=== PATIENT | male | born 1995 | race Caucasian/White ===

== ENCOUNTER 2017-06-21 13:39 | Emergency (ER) | payer MEDICARE, MEDICAID ==
[~2017-06-21] VITALS: Ht 162.6 cm; Wt 75.0 kg
[~2017-06-21 13:39] MED LIST: /AUGM875TA OR; /CELE20CA OR; VICO5TAB OR
[2017-06-21] MEDS ORDERED: NS 1,000 ML IV ONE (16:00)
[2017-06-21] MEDS ORDERED: ISOVUE-370 76% 100ML VIAL (Q9967) As Ordered ONE (16:21)
--- NOTE | 2017-06-21 16:47 | REP ---
CT Head without contrast HISTORY: Trauma COMPARISON: 10/01/2015 There is no intraparenchymal hemorrhage, acute infarct, mass or midline shift. The ventricular system is normal in appearance. There is no extra cerebral collection. There is no fracture. The visualized sinuses are clear. IMPRESSION: There is no intracranial lesion. Signed by Darian Baird MD 06/21/2017 04:38 P
--- NOTE | 2017-06-21 16:52 | REP ---
CT of the chest with IV contrast: There are no comparison studies. There is no pneumothorax, hemothorax or pulmonary contusion. There are no clavicle, scapula, or rib fractures. There are no sternal or vertebral fractures. There is no mediastinal hematoma. The thoracic aorta is unremarkable. Cardiac size is normal. In the upper abdomen. Visualized areas of the liver, gallbladder, pancreas and spleen are unremarkable. The visualized abdominal aorta is unremarkable. The renal upper poles are unremarkable. Impression: Essentially negative CT study of the chest. Signed by Jones Lambert MD 06/21/2017 04:44 P
[2017-06-21 16:53] LABS: BASO % 0.3 % (0.0-1.0); EOS % 0.1 % (0.0-3.0); IMMATURE GRANULOCYTE % 0.3 % (0-0); LYMPH # 1.8 10^3/uL (1.5-6.5); LYMPH % 11.6 % (24.0-44.0); MEAN CORPUSCULAR HEMOGLOBIN 28.9 pg (27.0-33.0); MEAN CORPUSCULAR HGB CONC 34.5 g/dl (32.0-36.5); MEAN CORPUSCULAR VOLUME 83.7 fl (80.0-96.0); MONO # 0.4 10^3/uL (0.0-0.8); MONO % 2.6 % (0.0-5.0); NEUTROPHILS # 13.3 10^3/uL (1.8-7.7); NEUTROPHILS % 85.1 % (36.0-66.0); PLATELET COUNT, AUTOMATED 332 10^3/uL (150-450); RED CELL DISTRIBUTION WIDTH 12.3 % (11.5-14.5); WHITE BLOOD COUNT 15.7 10^3/uL (4.0-10.0)
--- NOTE | 2017-06-21 16:56 | REP ---
MAXILLOFACIAL CT WITHOUT CONTRAST: HISTORY: Trauma. Minimal mucosal thickening is present in the maxillary and right ethmoid sinuses. The remaining sinuses are clear. The ostiomeatal units are patent. The middle and inferior nasal turbinates are partially paradoxical. There is joan bullosa of the left middle nasal turbinate. There is mild deviation of the nasal septum to the right. A spur is present arising from the right side of the nasal septum. The spur abuts the right inferior nasal turbinate. The cribriform plate, medial méndez of the orbits and optic canals are intact. The carotid canals form a segment of the posterolateral méndez of the sphenoid sinus. There is no fracture. IMPRESSION: Sinus mucosal thickening as described above. Signed by Darian Baird MD 06/21/2017 05:00 P
--- NOTE | 2017-06-21 16:57 | REP ---
CT cervical spine without contrast HISTORY: Trauma COMPARISON: 10/01/2015 There is no acute fracture or subluxation. A disc bulge with associated osteophyte formation is present at the C4-5 level. A disc bulge is present at the C5-6 level. There is minimal narrowing of the spinal canal. The neural foramina are patent. The intervertebral discs and vertebral bodies are normal in height. IMPRESSION: 1. There is no acute fracture or subluxation. 2. There is cervical spondylosis at the C4-5 and C5-6 levels. Signed by Darian Baird MD 06/21/2017 04:48 P
[2017-06-21 17:15] LABS: INR 0.98
[2017-06-21] MEDS ORDERED: KETOROLAC 30 MG/ML VIAL (J1885) IV ONE (17:15)
[2017-06-21] MEDS ORDERED: CYCL10TA PO (17:20)
[2017-06-21] MEDS ORDERED: IBUP80TA PO (17:20)
[2017-06-21 17:26] LABS: ALBUMIN 3.9 GM/DL (3.2-5.2); ALBUMIN/GLOBULIN RATIO 1.05 (1.00-1.93); ALKALINE PHOSPHATASE 64 U/L (45-117); ALT/SGPT 50 U/L (12-78); ANION GAP 7 MEQ/L (8-16); AST/SGOT 38 U/L (15-37); BILIRUBIN,DIRECT 0.1 MG/DL (0.0-0.2); BILIRUBIN,TOTAL 0.6 MG/DL (0.2-1.0); BLOOD UREA NITROGEN 15 MG/DL (7-18); CARBON DIOXIDE LEVEL 27 MEQ/L (21-32); CHLORIDE LEVEL 103 MEQ/L (98-107); CREATININE FOR GFR 0.91 MG/DL (0.70-1.30); GLOMERULAR FILTRATION RATE > 60.0 (>60); GLUCOSE, FASTING 91 MG/DL (70-105); POTASSIUM SERUM 3.9 MEQ/L (3.5-5.1); SODIUM LEVEL 137 MEQ/L (136-145); TOTAL PROTEIN 7.6 GM/DL (6.4-8.2)
[2017-06-21 17:49] VITALS: BP 141/63
--- NOTE | 2017-06-22 07:40 | ECGEPIP ---
Stationary ECG Study [facility] - ED Test Date: 2017-06-21 Pat Name: ASIA PARK Department: Room: - Gender: M Personal Chef: ct : 1995 Requested By: AURELIA HILL PA-C. Order Number: [id number] Reading MD: Noelle Corrigan Measurements Intervals [place] Rate: 65 P: 1 MS: 163 QRS: 106 QRSD: 113 T: 30 QT: 381 QTc: 398 Interpretive Statements SINUS RHYTHM MARKED RIGHT AXIS DEVIATION MODERATE INTRAVENTRICULAR CONDUCTION DELAY NO PRIOR FOR COMPARISON Electronically Signed On 06-22-2017 7:40:36 EDT by Noelle Corrigan
== END 2017-06-21 18:06 | disposition home or self-care (01) ==
LOC: M ED 13:39
DX: S09.90XA Unspecified injury of head, initial encounter (principal); S20.20XA Contusion of thorax, unspecified, initial encounter; S13.4XXA Sprain of ligaments of cervical spine, initial encounter; S00.81XA Abrasion of other part of head, initial encounter; W22.8XXA Striking against or struck by other objects, initial encounter; Y92.099 Unspecified place in other non-institutional residence as the place of occurrence of the external cause; Y93.9 Activity, unspecified; Y99.9 Unspecified external cause status; Z87.891 Personal history of nicotine dependence; M47.812 Spondylosis without myelopathy or radiculopathy, cervical region
CPT/HCPCS: 70450; 70486; 71260; 72125; 80048; 80076; 82550; 82553; 84484; 85025; 85610; 85730; 86850; 86900; 86901; 93005; 96374; 99284; J1885; Q9967

== ENCOUNTER 2020-07-02 16:03 | Emergency (ER) | payer MEDICAID, MEDICARE, OTHER ==
[~2020-07-02] VITALS: Ht 162.6 cm; Wt 92.8 kg
[~2020-07-02 16:03] MED LIST changes: -/CELE20CA OR; +CELE1CAP4 OR; +CYCL-707 PO; +IBUP80TA PO
[2020-07-02] MEDS ORDERED: BOOSTRIX/ADACEL VACCINE (DIPHTH/PERTUSS/ACELL/TETANUS) 0.5ML SYR IM ONE (16:45)
[2020-07-02] MEDS ORDERED: LIDOCAINE 1% MDV 20ML VIAL SC ONE (16:45)
[2020-07-02 17:22] VITALS: BP 160/73
== END 2020-07-02 17:48 | disposition home or self-care (01) ==
LOC: M ED 16:03
DX: S61.212A Laceration without foreign body of right middle finger without damage to nail, initial encounter (principal); W25.XXXA Contact with sharp glass, initial encounter; Y92.9 Unspecified place or not applicable; Y99.0 Civilian activity done for income or pay

== ENCOUNTER → 2020-10-12 | Outpatient (REF) | payer MEDICAID ==
[2020-10-12 12:45] LABS: ALBUMIN 3.8 GM/DL (3.2-5.2); ALT/SGPT 50 U/L (12-78); BILIRUBIN,TOTAL 0.4 MG/DL (0.2-1.0); BLOOD UREA NITROGEN 24 MG/DL (7-18); CALCIUM LEVEL 9.3 MG/DL (8.5-10.1); CARBON DIOXIDE LEVEL 29 MEQ/L (21-32); CHLORIDE LEVEL 104 MEQ/L (98-107); CHOLESTEROL LEVEL 238 MG/DL (<200); CHOLESTEROL RISK RATIO 6.263 (<5); CREATININE FOR GFR 0.98 MG/DL (0.70-1.30); GLOMERULAR FILTRATION RATE > 60.0 (>60); GLUCOSE, FASTING 107 MG/DL (70-100); HDL CHOLESTEROL 38 MG/DL (>40); LDL CHOLESTEROL 169 MG/DL (<100); NON-HDL-C 200 MG/DL; POTASSIUM SERUM 4.4 MEQ/L (3.5-5.1); SODIUM LEVEL 140 MEQ/L (136-145); TOTAL PROTEIN 7.1 GM/DL (6.4-8.2); TRIGLYCERIDES LEVEL 156 MG/DL (<150)
[2020-10-12 13:47] LABS: HEMOGLOBIN A1c 5.5 %
== END ==
LOC: M SFHCCLAY 07:27
PROVIDERS: ATTEND Family Medicine
DX: Z00.00 Encounter for general adult medical examination without abnormal findings (principal); I11.9 Hypertensive heart disease without heart failure; R07.89 Other chest pain; Z13.220 Encounter for screening for lipoid disorders; Z82.49 Family history of ischemic heart disease and other diseases of the circulatory system; E66.01 Morbid (severe) obesity due to excess calories; Z68.35 Body mass index [BMI] 35.0-35.9, adult

== ENCOUNTER → 2020-11-22 | Outpatient (REF) | payer MEDICARE, MEDICAID | LOC: M LAB REF 11:14 | PROVIDERS: ATTEND Internal Medicine Cardiovascular Disease | DX: I10 Essential (primary) hypertension (principal) ==

== ENCOUNTER → 2020-11-23 | Outpatient (REF) | payer MEDICARE, MEDICAID ==
[2020-11-23 14:34] LABS: BLOOD UREA NITROGEN 16 MG/DL (7-18); CALCIUM LEVEL 9.5 MG/DL (8.5-10.1); CARBON DIOXIDE LEVEL 31 MEQ/L (21-32); CHLORIDE LEVEL 105 MEQ/L (98-107); CREATININE FOR GFR 0.95 MG/DL (0.70-1.30); GLOMERULAR FILTRATION RATE > 60.0 (>60); GLUCOSE, FASTING 97 MG/DL (70-100); POTASSIUM SERUM 4.3 MEQ/L (3.5-5.1); SODIUM LEVEL 139 MEQ/L (136-145); THYROXINE (T4) 9.2 UG/DL (4.5-12.0)
[2020-11-23 18:13] LABS: MALB URINE SIEMENS 6.8 MG/L; MAU/CREAT RATIO 3.3 MCG/MG (0.0-30.0)
== END ==
LOC: M LABDRAWC 11:16
PROVIDERS: ATTEND Internal Medicine Cardiovascular Disease
DX: I10 Essential (primary) hypertension (principal)

== ENCOUNTER → 2020-12-07 | Outpatient (CLI) | payer MEDICARE, MEDICAID ==
--- NOTE | 2020-12-08 14:29 | SLEEPHOME ---
DATE: 12/07/2020 ORDERED BY: Balaji Ferrer MD Diagnostic home sleep testing was performed due to concern for the obstructive sleep apnea syndrome in this patient with a history of snoring and fatigue. For testing, a nocturnal T3 respiratory monitoring device was used. Continuous record was made of pulse, oxygen saturation, air flow, chest and abdominal strain, and body position. Eight hours and 32 minutes of data were reviewed. There were 7 hours and 50 minutes marked as time in bed. During the interval marked time in bed, there were 111 respiratory events identified of 10 seconds in duration or greater for a respiratory event index of 14.2. The events were obstructive. Baseline pulse rate was 72. Pulse rate ranged 26 to 187. Baseline saturation was 94%. Saturations were seen as low as 61% and testing was performed in both the supine and nonsupine positions. IMPRESSION: Abnormal home sleep testing with repetitive respiratory events and oxygen desaturations to 61% with a respiratory event index of 14.2 is consistent with the obstructive sleep apnea syndrome. RECOMMENDATION: The patient should be encouraged to undergo a formal sleep evaluation.
== END ==
LOC: M SLEEP HO 08:25
PROVIDERS: ATTEND Internal Medicine Cardiovascular Disease
DX: G47.9 Sleep disorder, unspecified (principal); R06.83 Snoring
CPT/HCPCS: 76775; 93975; G0399

== ENCOUNTER → 2020-12-07 | Outpatient (CLI) | payer MEDICARE, MEDICAID ==
--- NOTE | 2020-12-07 09:29 | REP ---
INDICATION: HTN COMPARISON: None TECHNIQUE: Real time zheng scale ultrasound examination using curved array transducer followed by color Doppler evaluation of the renal vasculature. FINDINGS: Bilateral kidneys are normal in contour, size, echogenicity, and reniform shape without hydronephrosis, nephrolithiasis, cystic or renal mass lesion. Color Doppler evaluation . Peak aortic velocity: 162 centimeters/second RIGHT KIDNEY Renal arterial velocity: 119 centimeters/second Renal-aortic ratio: 0.7 Intrarenal resistive indices: 0.61-0.64 Intrarenal acceleration times: 0.03-0.04 LEFT KIDNEY Renal arterial velocity: 144 centimeters/second Renal-aortic ratio: 0.9 Intrarenal resistive indices: 0.57-0.65 Intrarenal acceleration times: 0.03-0.05 IMPRESSION: 1. Kidneys appear normal. 2. Doppler interegation without sonographic evidence for renal arterial stenosis. <Electronically signed by Jos Madrigal > 12/07/20 [id number]
== END ==
LOC: M RAD 08:22
PROVIDERS: ATTEND Internal Medicine Cardiovascular Disease
DX: I10 Essential (primary) hypertension (principal)

== ENCOUNTER 2021-10-27 16:51 | Inpatient (IN) | payer MEDICARE, MEDICAID ==
[~2021-10-27] VITALS: Ht 162.6 cm; Wt 76.0 kg
[~2021-10-27 16:51] MED LIST changes: -AMOX875T2 PO; -BACITAB PO; -DIAZ2TAB PO; -GABA-1171 PO; -METO25TA4 PO; -OXYC10TA12 PO
[2021-10-27] MEDS ORDERED: NS 500 ML IV ONE (17:50)
[2021-10-27 18:41] LABS: BASO # 0.1 10^3/uL (0.0-0.2); BASO % 0.4 % (0.0-1.0); EOS # 0.2 10^3/uL (0.0-0.5); EOS % 1.5 % (0.0-3.0); HEMATOCRIT 44.3 % (42.0-52.0); HEMOGLOBIN 13.6 g/dl (13.5-17.5); LYMPH # 3.7 10^3/uL (1.5-5.0); LYMPH % 22.4 % (24.0-44.0); MEAN CORPUSCULAR HEMOGLOBIN 26.3 pg (27.0-33.0); MEAN CORPUSCULAR HGB CONC 30.7 g/dl (32.0-36.5); MEAN CORPUSCULAR VOLUME 85.7 fl (80.0-96.0); MONO # 1.3 10^3/uL (0.0-0.8); MONO % 7.7 % (2.0-8.0); NEUTROPHILS % 67.3 % (36.0-66.0); PLATELET COUNT, AUTOMATED 546 10^3/uL (150-450); RED BLOOD COUNT 5.17 10^6/uL (4.30-6.10); WHITE BLOOD COUNT 16.3 10^3/uL (4.0-10.0)
[2021-10-27 19:01] LABS: ALBUMIN 3.6 GM/DL (3.2-5.2); ALT/SGPT 39 U/L (12-78); BILIRUBIN,DIRECT < 0.1 MG/DL (0.0-0.2); BILIRUBIN,TOTAL 0.3 MG/DL (0.2-1.0); BLOOD UREA NITROGEN 16 MG/DL (7-18); CALCIUM LEVEL 9.5 MG/DL (8.5-10.1); CARBON DIOXIDE LEVEL 28 MEQ/L (21-32); CHLORIDE LEVEL 105 MEQ/L (98-107); CREATININE FOR GFR 0.88 MG/DL (0.70-1.30); FREE T4 0.94 NG/DL (0.76-1.46); GLOMERULAR FILTRATION RATE > 60.0 (>60); GLUCOSE, FASTING 100 MG/DL (70-100); POTASSIUM SERUM 4.1 MEQ/L (3.5-5.1); SODIUM LEVEL 141 MEQ/L (136-145); TOTAL PROTEIN 8.3 GM/DL (6.4-8.2)
[2021-10-27] MEDS ORDERED: ISOVUE-370 76% 100ML VIAL As Ordered ONE (19:33)
[2021-10-27] MEDS ORDERED: PIPERACILLIN/TAZOBACTAM SOD 4.5 GM in D5W MINI-BAG PLUS 50 ML IV ONE (21:00)
[2021-10-27] MEDS ORDERED: GABA-1171 PO (22:00)
[2021-10-27] MEDS ORDERED: DIAZ2TAB PO (22:00)
[2021-10-27] MEDS ORDERED: METO25TA4 PO (22:00)
[2021-10-27] MEDS ORDERED: OXYC10TA12 PO (22:00)
[2021-10-27] MEDS ORDERED: VANCOMYCIN HCL 1,000 MG, VIAL MATE ADAPTER 1 EACH in NS 250 ML IV ONE (22:00)
[2021-10-27] MEDS ORDERED: HOME MED LIST COMPLETE! XX SCH (22:05)
[2021-10-27] MEDS ORDERED: oxyCODONE 5MG TAB PO ONE (23:25)
[2021-10-27] MEDS ORDERED: diazePAM 2 MG TAB PO ONE (23:25)
[2021-10-28] MEDS ORDERED: ALBUTEROL SULFATE 2.5 MG/0.5 ML INH NEB SOLN NEB PRN (00:35)
[2021-10-28] MEDS ORDERED: amLODIPine 5 MG TAB PO ONE (00:55)
[2021-10-28] MEDS ORDERED: CEPACOL LOZENGE PO PRN (01:10)
[2021-10-28] MEDS: VANCOMYCIN HCL 1,000 MG, VIAL MATE ADAPTER 1 EACH in NS 250 ML IV SCH ×3 (04:00→21:18)
[2021-10-28] MEDS: PIPERACILLIN/TAZOBACTAM SOD 4.5 GM in D5W MINI-BAG PLUS 50 ML IV SCH ×3 (05:00→21:18)
[2021-10-28] MEDS: oxyCODONE 5MG TAB PO PRN ×2 (05:00→21:20)
[2021-10-28] MEDS: IPRATROPIUM 0.5MG/ALBUTEROL 2.5MG INH SOL UD 3ML (DUONEB) NEB SCH ×4 (07:59→20:00)
[2021-10-28 08:53] LABS: BLOOD UREA NITROGEN 13 MG/DL (7-18); CALCIUM LEVEL 9.4 MG/DL (8.5-10.1); CARBON DIOXIDE LEVEL 27 MEQ/L (21-32); CHLORIDE LEVEL 106 MEQ/L (98-107); CREATININE FOR GFR 0.84 MG/DL (0.70-1.30); GLOMERULAR FILTRATION RATE > 60.0 (>60); GLUCOSE, FASTING 86 MG/DL (70-100); POTASSIUM SERUM 4.4 MEQ/L (3.5-5.1); SODIUM LEVEL 142 MEQ/L (136-145)
[2021-10-28 09:49] LABS: BASO % 0.2 % (0.0-1.0); EOS # 0.2 10^3/uL (0.0-0.5); EOS % 1.2 % (0.0-3.0); LYMPH # 2.6 10^3/uL (1.5-5.0); LYMPH % 19.4 % (24.0-44.0); MEAN CORPUSCULAR HEMOGLOBIN 26.2 pg (27.0-33.0); MEAN CORPUSCULAR HGB CONC 30.7 g/dl (32.0-36.5); MEAN CORPUSCULAR VOLUME 85.2 fl (80.0-96.0); MONO # 0.9 10^3/uL (0.0-0.8); MONO % 6.4 % (2.0-8.0); NEUTROPHILS # 9.7 10^3/uL (1.5-8.5); RED BLOOD COUNT 4.32 10^6/uL (4.30-6.10); WHITE BLOOD COUNT 13.5 10^3/uL (4.0-10.0)
[2021-10-28 09:52] LABS: HEMOGLOBIN 11.3 g/dl (13.5-17.5)
[2021-10-28 09:53] LABS: HEMATOCRIT 36.8 % (42.0-52.0); PLATELET COUNT, AUTOMATED 420 10^3/uL (150-450)
[2021-10-28] MEDS: ENOXAPARIN 40MG/0.4ML SYRINGE (J1650 PER 10MG) SC SCH (10:26)
[2021-10-28] MEDS: GABAPENTIN 100 MG CAP PO SCH ×3 (10:26→21:19)
[2021-10-28] MEDS: METOPROLOL TART 25 MG TABLET PO SCH ×2 (10:27→21:19)
[2021-10-28] MEDS: diazePAM 2 MG TAB PO SCH ×2 (10:27→21:18)
[2021-10-28] MEDS ORDERED: METOPROLOL TART 25 MG TABLET PO ONE (12:25)
[2021-10-28 17:05] LABS: C REACTIVE PROTEIN QUANTITATIV 4.76 MG/DL (0.00-0.30)
[2021-10-28 17:49] VITALS: BP 140/84
[2021-10-28 22:00] VITALS: BP 145/87
[2021-10-29] MEDS: PIPERACILLIN/TAZOBACTAM SOD 4.5 GM in D5W MINI-BAG PLUS 50 ML IV SCH ×2 (05:15→11:26)
[2021-10-29 06:00] VITALS: BP 116/69
[2021-10-29] MEDS: IPRATROPIUM 0.5MG/ALBUTEROL 2.5MG INH SOL UD 3ML (DUONEB) NEB SCH ×2 (08:00→12:00)
[2021-10-29] MEDS: ENOXAPARIN 40MG/0.4ML SYRINGE (J1650 PER 10MG) SC SCH (08:09)
[2021-10-29] MEDS: GABAPENTIN 100 MG CAP PO SCH (08:09)
[2021-10-29 08:10] VITALS: BP 144/88
[2021-10-29] MEDS: METOPROLOL TART 25 MG TABLET PO SCH (08:10)
[2021-10-29] MEDS: diazePAM 2 MG TAB PO SCH (08:10)
[2021-10-29 08:11] VITALS: BP 144/88
[2021-10-29] MEDS: oxyCODONE 5MG TAB PO PRN (08:11)
[2021-10-29] MEDS ORDERED: AMOX875T2 PO (10:53)
[2021-10-29] MEDS ORDERED: BACITAB PO (10:53)
[2021-10-29 10:55] LABS: BASO % 0.3 % (0.0-1.0); EOS # 0.3 10^3/uL (0.0-0.5); EOS % 2.8 % (0.0-3.0); HEMATOCRIT 34.6 % (42.0-52.0); HEMOGLOBIN 10.7 g/dl (13.5-17.5); LYMPH # 2.4 10^3/uL (1.5-5.0); LYMPH % 23.6 % (24.0-44.0); MEAN CORPUSCULAR HEMOGLOBIN 26.3 pg (27.0-33.0); MEAN CORPUSCULAR HGB CONC 30.9 g/dl (32.0-36.5); MONO # 0.7 10^3/uL (0.0-0.8); MONO % 6.5 % (2.0-8.0); NEUTROPHILS # 6.7 10^3/uL (1.5-8.5); NEUTROPHILS % 66.1 % (36.0-66.0); PLATELET COUNT, AUTOMATED 438 10^3/uL (150-450); RED BLOOD COUNT 4.07 10^6/uL (4.30-6.10); WHITE BLOOD COUNT 10.1 10^3/uL (4.0-10.0)
[2021-10-29 11:22] LABS: BLOOD UREA NITROGEN 12 MG/DL (7-18); CALCIUM LEVEL 9.2 MG/DL (8.5-10.1); CARBON DIOXIDE LEVEL 28 MEQ/L (21-32); CHLORIDE LEVEL 107 MEQ/L (98-107); CREATININE FOR GFR 0.92 MG/DL (0.70-1.30); GLOMERULAR FILTRATION RATE > 60.0 (>60); GLUCOSE, FASTING 93 MG/DL (70-100); POTASSIUM SERUM 3.8 MEQ/L (3.5-5.1); SODIUM LEVEL 142 MEQ/L (136-145)
[2021-10-29 11:35] LABS: RHEUMATOID FACTOR QUANT < 10.0 IU/ML (<15.0)
[2021-10-29 11:51] LABS: ERYTHROCYTE SEDIMENTATION RATE 39 mm/hr (0-15)
== END 2021-10-29 13:31 | disposition home or self-care (01) | DRG 194 ==
LOC: M ED 16:51 → M ED INP 10-28 00:32 → ENRESERV 10-28 15:36 → M MSPAV 10-28 16:36
PROVIDERS: ADMIT Internal Medicine; ATTEND General Practice
DX: J18.9 Pneumonia, unspecified organism (principal); G72.81 Critical illness myopathy; J02.9 Acute pharyngitis, unspecified; F41.9 Anxiety disorder, unspecified; Z79.899 Other long term (current) drug therapy

== ENCOUNTER → 2021-10-27 | Outpatient (CLI) | payer MEDICARE, MEDICAID ==
[~2021-10-27] MED LIST changes: +AMOX875T2 PO; +BACITAB PO; +DIAZ2TAB PO; +GABA-1171 PO; +METO25TA4 PO; +OXYC10TA12 PO
== END ==
LOC: M CLY 15:11
PROVIDERS: ATTEND Family Medicine
DX: J90 Pleural effusion, not elsewhere classified (principal); R91.8 Other nonspecific abnormal finding of lung field; R05.9 Cough, unspecified; R50.9 Fever, unspecified

== ENCOUNTER 2021-12-06 13:45 | Outpatient (RCR) | payer MEDICARE, MEDICAID ==
[~2021-12-06 13:45] MED LIST changes: +AMOX875T2 PO; +BACITAB PO; +DIAZ2TAB PO; +GABA-1171 PO; +METO25TA4 PO; +OXYC10TA12 PO
== END 2021-12-08 ==
LOC: M PT 13:45
PROVIDERS: ATTEND Family Medicine
DX: R53.1 Weakness (principal); U09.9 Post COVID-19 condition, unspecified; R47.9 Unspecified speech disturbances

== ENCOUNTER 2022-01-06 14:30 | Outpatient (RCR) | payer MEDICARE, MEDICAID | END 2022-01-07 | LOC: M PT 14:30 | PROVIDERS: ATTEND Family Medicine | DX: U09.9 Post COVID-19 condition, unspecified (principal); R47.9 Unspecified speech disturbances; R53.1 Weakness ==

== ENCOUNTER → 2022-01-22 | Outpatient (REF) | payer MEDICARE, MEDICAID | LOC: M LAB REF 15:01 | PROVIDERS: ATTEND Physician Assistant Medical | DX: J06.9 Acute upper respiratory infection, unspecified (principal) ==

== ENCOUNTER 2022-02-03 13:45 | Outpatient (RCR) | payer MEDICARE, MEDICAID | END 2022-02-07 | LOC: M PT 13:45 | PROVIDERS: ATTEND Family Medicine | DX: U09.9 Post COVID-19 condition, unspecified (principal); R47.9 Unspecified speech disturbances; R53.1 Weakness ==

== ENCOUNTER 2022-03-08 13:02 | Outpatient (RCR) | payer MEDICARE, MEDICAID | END 2022-03-09 | LOC: M PT 13:02 | PROVIDERS: ATTEND Family Medicine | DX: U09.9 Post COVID-19 condition, unspecified (principal); R47.9 Unspecified speech disturbances; R53.1 Weakness ==

== ENCOUNTER 2022-03-17 13:45 | Outpatient (RCR) | payer MEDICARE, MEDICAID | END 2022-04-09 | LOC: M PT 13:45 | PROVIDERS: ATTEND Family Medicine | DX: U09.9 Post COVID-19 condition, unspecified (principal); R47.9 Unspecified speech disturbances; R53.1 Weakness ==

== ENCOUNTER → 2022-06-07 | Outpatient (REF) | payer MEDICARE, MEDICAID ==
[2022-06-07 17:26] LABS: HEMATOCRIT 44.9 % (42.0-52.0); HEMOGLOBIN 14.6 g/dl (13.5-17.5); MEAN CORPUSCULAR HEMOGLOBIN 27.9 pg (27.0-33.0); MEAN CORPUSCULAR HGB CONC 32.5 g/dl (32.0-36.5); MEAN CORPUSCULAR VOLUME 85.7 fl (80.0-96.0); PLATELET COUNT, AUTOMATED 321 10^3/uL (150-450); RED BLOOD COUNT 5.24 10^6/uL (4.30-6.10)
[2022-06-07 18:03] LABS: ALBUMIN 3.9 GM/DL (3.2-5.2); ALT/SGPT 42 U/L (12-78); BILIRUBIN,TOTAL 0.6 MG/DL (0.2-1.0); BLOOD UREA NITROGEN 23 MG/DL (7-18); CALCIUM LEVEL 9.9 MG/DL (8.5-10.1); CARBON DIOXIDE LEVEL 30 MEQ/L (21-32); CHLORIDE LEVEL 103 MEQ/L (98-107); CHOLESTEROL LEVEL 211 MG/DL (<200); CHOLESTEROL RISK RATIO 5.552 (<5); CREATININE FOR GFR 1.29 MG/DL (0.70-1.30); GLOMERULAR FILTRATION RATE > 60.0 (>60); GLUCOSE, FASTING 87 MG/DL (70-100); HDL CHOLESTEROL 38 MG/DL (>40); LDL CHOLESTEROL 128 MG/DL (<100); NON-HDL-C 173 MG/DL; SODIUM LEVEL 136 MEQ/L (136-145); TOTAL PROTEIN 7.7 GM/DL (6.4-8.2); TRIGLYCERIDES LEVEL 224 MG/DL (<150)
[2022-06-07 18:09] LABS: HEMOGLOBIN A1c 5.9 %
== END ==
LOC: M SFHCCLAY 10:53
PROVIDERS: ATTEND Nurse Practitioner Family
DX: Z13.1 Encounter for screening for diabetes mellitus (principal); Z13.220 Encounter for screening for lipoid disorders; U09.9 Post COVID-19 condition, unspecified

== ENCOUNTER → 2022-08-01 | Outpatient (CLI) | payer MEDICARE, MEDICAID | LOC: M PLAIMG 10:13 | PROVIDERS: ATTEND Internal Medicine Pulmonary Disease | DX: J84.9 Interstitial pulmonary disease, unspecified (principal); U09.9 Post COVID-19 condition, unspecified; R16.0 Hepatomegaly, not elsewhere classified; J47.9 Bronchiectasis, uncomplicated ==

== ENCOUNTER → 2022-08-11 | Outpatient (REF) | payer MEDICARE, MEDICAID ==
[2022-08-11 17:40] LABS: PLATELET COUNT, AUTOMATED 355 10^3/uL (150-450)
[2022-08-11 17:50] LABS: INR 0.96
[2022-08-11 17:51] LABS: PARTIAL THROMBOPLASTIN TIME 32.8 SECONDS (24.8-34.2)
[2022-08-15 15:09] LABS: ACETYLCHOLINE RCPTOR BINDING A 0.03 nmol/L (0.00-0.24); HCG SERUM TUMOR MARKER QUANT < 1 mIU/mL (0-3)
== END ==
LOC: M LABDRAWC 17:13
PROVIDERS: ATTEND Internal Medicine Pulmonary Disease
DX: R91.8 Other nonspecific abnormal finding of lung field (principal); J98.59 Other diseases of mediastinum, not elsewhere classified

== ENCOUNTER → 2022-08-24 | Outpatient (CLI) | payer MEDICARE, MEDICAID ==
[~2022-08-24] MED LIST changes: +ESCI5SOL3 PO; +LIDOCAINE 1% MDV 20ML VIAL As Ordered ONE
[2022-08-24 08:02] VITALS: BP 166/103
== END ==
LOC: M IRPRO 07:57
PROVIDERS: ATTEND Internal Medicine Pulmonary Disease
DX: R91.8 Other nonspecific abnormal finding of lung field (principal); Z53.9 Procedure and treatment not carried out, unspecified reason

== ENCOUNTER → 2022-10-02 | Outpatient (CLI) | payer MEDICARE, MEDICAID ==
[~2022-10-02] MED LIST changes: +ALB2.5NEB NEB; +ALBU8.5H; +ALBU8.5H INH; +AMOX875T2; +BENZ-18 PO; +IBUP1TAB7 PO; +IBUP80TA; +LEXA1TAB2 PO; -LIDOCAINE 1% MDV 20ML VIAL As Ordered ONE; +OMEP-173 PO; +PRED10TA2 PO; +SYMB16INH INH
== END ==
LOC: M CLY 15:13
PROVIDERS: ATTEND Physician Assistant
DX: R05.1 Acute cough (principal); R91.8 Other nonspecific abnormal finding of lung field

== ENCOUNTER 2022-10-03 23:09 | Inpatient (IN) | payer MEDICARE, MEDICAID ==
[~2022-10-03] VITALS: Ht 162.6 cm; Wt 97.7 kg
[~2022-10-03 23:09] MED LIST changes: -ALB2.5NEB NEB; -ALBU8.5H; -ALBU8.5H INH; -AMOX875T2; -BENZ-18 PO; -IBUP1TAB7 PO; -IBUP80TA; -LEXA1TAB2 PO; -OMEP-173 PO; -PRED10TA2 PO; -SYMB16INH INH
[2022-10-03] MEDS ORDERED: ACETAMINOPHEN TAB 650MG DOSE (2X325MG) PO ONE (23:50)
[2022-10-04 00:35] LABS: MAGNESIUM LEVEL 1.9 MG/DL (1.8-2.4)
[2022-10-04 00:39] LABS: BASO # 0.1 10^3/uL (0.0-0.2); BASO % 0.5 % (0.0-1.0); EOS # 0.2 10^3/uL (0.0-0.5); EOS % 1.7 % (0.0-3.0); HEMATOCRIT 43.6 % (42.0-52.0); HEMOGLOBIN 14.3 g/dl (13.5-17.5); LYMPH # 2.6 10^3/uL (1.5-5.0); LYMPH % 19.5 % (24.0-44.0); MEAN CORPUSCULAR HEMOGLOBIN 28.9 pg (27.0-33.0); MEAN CORPUSCULAR HGB CONC 32.8 g/dl (32.0-36.5); MEAN CORPUSCULAR VOLUME 88.1 fl (80.0-96.0); MONO # 1.2 10^3/uL (0.0-0.8); MONO % 8.9 % (2.0-8.0); NEUTROPHILS # 9.1 10^3/uL (1.5-8.5); NEUTROPHILS % 68.1 % (36.0-66.0); PLATELET COUNT, AUTOMATED 370 10^3/uL (150-450); RED BLOOD COUNT 4.95 10^6/uL (4.30-6.10); WHITE BLOOD COUNT 13.4 10^3/uL (4.0-10.0)
[2022-10-04 00:41] LABS: BLOOD UREA NITROGEN 24 MG/DL (9-23); CARBON DIOXIDE LEVEL 24 MMOL/L (20-31); CHLORIDE LEVEL 104 MMOL/L (98-107); GLOMERULAR FILTRATION RATE > 60.0 (>60); GLUCOSE, FASTING 142 MG/DL (60-100); POTASSIUM SERUM 5.4 MMOL/L (3.5-5.1); SODIUM LEVEL 138 MMOL/L (136-145)
[2022-10-04] MEDS ORDERED: NS IV ONE (00:45)
[2022-10-04] MEDS ORDERED: ALBU8.5H (01:20)
[2022-10-04] MEDS ORDERED: AMOX875T2 (01:20)
[2022-10-04] MEDS ORDERED: IBUP80TA (01:20)
[2022-10-04] MEDS ORDERED: IPRATROPIUM 0.5MG/ALBUTEROL 2.5MG INH SOL UD 3ML (DUONEB) NEB ONE (01:30)
[2022-10-04] MEDS ORDERED: cefTRIAXone SOD 1 GM in D5W MINI-BAG PLUS 50 ML IV ONE (01:30)
[2022-10-04 01:48] LABS: RSV AMPLIFICATION POSITIVE (NEGATIVE)
[2022-10-04] MEDS ORDERED: AZITHROMYCIN INJ 500 MG, VIAL MATE ADAPTER 1 EACH in NS 250 ML IV ONE (02:00)
[2022-10-04] MEDS ORDERED: LEXA1TAB2 PO (02:32)
[2022-10-04] MEDS ORDERED: ALBU8.5H INH (02:32)
[2022-10-04] MEDS ORDERED: IBUP1TAB7 PO (02:32)
[2022-10-04] MEDS ORDERED: AMOX875T2 PO (02:32)
[2022-10-04] MEDS ORDERED: HOME MED LIST COMPLETE! XX SCH (02:35)
[2022-10-04] MEDS ORDERED: ALBUTEROL 90 MCG/ACT 8GM HFA INHALER INH PRN (02:50)
[2022-10-04 03:01] LABS: CK-MB VALUE MASS 3.2 NG/ML (<3.6)
[2022-10-04 03:02] LABS: MB/CK RELATIVE INDEX 0.74 (< OR =4)
[2022-10-04] MEDS ORDERED: GLUCAGON INJ 1MG VIAL SC PRN (03:45)
[2022-10-04] MEDS ORDERED: DEXTROSE 50% 50ML SYRINGE IV PRN (03:45)
[2022-10-04] MEDS ORDERED: GLUCOSE 4GM CHEW TABLET PO PRN (03:45)
[2022-10-04] MEDS ORDERED: SODIUM CHLORIDE 0.9% 1000ML IV ONE (04:00)
[2022-10-04] MEDS: BENZONATATE 100MG CAPSULE PO PRN ×2 (05:01→17:50)
[2022-10-04] MEDS: predniSONE 20 MG TAB PO SCH ×2 (05:04→08:26)
[2022-10-04] MEDS: HEPARIN SOD (PORCINE) 5000UNITS/ML 1ML VIAL/SYRINGE SC SCH ×3 (05:27→21:41)
[2022-10-04] MEDS: NS 1,000 ML IV SCH ×3 (05:30→16:47)
[2022-10-04] MEDS: ALBUTEROL SULFATE 2.5MG/0.5ML INH NEB SOLN NEB PRN ×4 (05:49→18:09)
[2022-10-04 05:56] VITALS: O2SAT 96
[2022-10-04] MEDS ORDERED: DOXYCYCLINE HYCLATE 100 MG in D5W MINI-BAG PLUS 100 ML IV SCH (06:00)
[2022-10-04] MEDS ORDERED: ACETAMINOPHEN TAB 650MG DOSE (2X325MG) PO ONE (06:00)
[2022-10-04] MEDS: INSULIN LISPRO (NovoLOG) PER UNIT SC SCH ×3 (07:30→17:43)
[2022-10-04] MEDS: GABAPENTIN 100 MG CAP PO SCH ×3 (08:25→21:42)
[2022-10-04] MEDS: ESCITALOPRAM OXALATE 10 MG TAB (LEXAPRO) PO SCH (08:26)
[2022-10-04] MEDS: METOPROLOL TART 25 MG TABLET PO SCH ×2 (08:30→21:42)
[2022-10-04 13:35] VITALS: BP 136/90
[2022-10-04] MEDS: ACETAMINOPHEN TAB 650MG DOSE (2X325MG) PO PRN ×2 (17:49→22:02)
[2022-10-04] MEDS ORDERED: ALBUTEROL 90 MCG/ACT 8GM HFA INHALER INH SCH (20:00)
[2022-10-04] MEDS: SYMBICORT 160/4.5MCG INHALER 6GM INH SCH (20:00)
[2022-10-04 20:48] VITALS: BP 136/79
[2022-10-04] MEDS ORDERED: INSULIN LISPRO (NovoLOG) PER UNIT SC SCH (21:00)
[2022-10-04] MEDS: DOXYCYCLINE HYCLATE 100MG TABLET PO SCH (21:42)
[2022-10-05] MEDS: ALBUTEROL SULFATE 2.5MG/0.5ML INH NEB SOLN NEB PRN ×4 (00:38→11:21)
[2022-10-05] MEDS ORDERED: cefTRIAXone SOD 1 GM in D5W MINI-BAG PLUS 50 ML IV SCH (02:00)
[2022-10-05] MEDS: BENZONATATE 100MG CAPSULE PO PRN (03:44)
[2022-10-05] MEDS: ACETAMINOPHEN TAB 650MG DOSE (2X325MG) PO PRN ×2 (03:46→10:24)
[2022-10-05] MEDS: ALBUTEROL 90 MCG/ACT 8GM HFA INHALER INH SCH ×3 (04:00→07:46)
[2022-10-05] MEDS: HEPARIN SOD (PORCINE) 5000UNITS/ML 1ML VIAL/SYRINGE SC SCH (05:54)
[2022-10-05 06:00] VITALS: BP 115/65
[2022-10-05 06:39] LABS: HEMATOCRIT 33.2 % (42.0-52.0); MEAN CORPUSCULAR HEMOGLOBIN 28.8 pg (27.0-33.0); MEAN CORPUSCULAR HGB CONC 32.5 g/dl (32.0-36.5); MEAN CORPUSCULAR VOLUME 88.5 fl (80.0-96.0); PLATELET COUNT, AUTOMATED 290 10^3/uL (150-450); RED BLOOD COUNT 3.75 10^6/uL (4.30-6.10); WHITE BLOOD COUNT 12.2 10^3/uL (4.0-10.0)
[2022-10-05 06:47] LABS: HEMOGLOBIN 10.8 g/dl (13.5-17.5)
[2022-10-05 07:03] LABS: BLOOD UREA NITROGEN 22 MG/DL (9-23); CARBON DIOXIDE LEVEL 25 MMOL/L (20-31); CHLORIDE LEVEL 109 MMOL/L (98-107); CREATININE FOR GFR 0.88 MG/DL (0.70-1.30); GLOMERULAR FILTRATION RATE > 60.0 (>60); GLUCOSE, FASTING 96 MG/DL (60-100); POTASSIUM SERUM 3.8 MMOL/L (3.5-5.1); SODIUM LEVEL 141 MMOL/L (136-145)
[2022-10-05] MEDS: INSULIN LISPRO (NovoLOG) PER UNIT SC SCH ×2 (07:30→11:54)
[2022-10-05] MEDS: SYMBICORT 160/4.5MCG INHALER 6GM INH SCH (07:46)
[2022-10-05 08:00] VITALS: BP 158/88
[2022-10-05] MEDS ORDERED: OMEPRAZOLE 20MG CAP PO SCH (09:00)
[2022-10-05] MEDS: ESCITALOPRAM OXALATE 10 MG TAB (LEXAPRO) PO SCH (10:19)
[2022-10-05 10:21] VITALS: BP 158/88
[2022-10-05] MEDS: METOPROLOL TART 25 MG TABLET PO SCH (10:21)
[2022-10-05] MEDS: DOXYCYCLINE HYCLATE 100MG TABLET PO SCH (10:21)
[2022-10-05] MEDS: GABAPENTIN 100 MG CAP PO SCH (10:22)
[2022-10-05] MEDS: predniSONE 20 MG TAB PO SCH (10:23)
[2022-10-05] MEDS ORDERED: PRED10TA2 PO (12:12)
[2022-10-05] MEDS ORDERED: ALB2.5NEB NEB (12:12)
[2022-10-05] MEDS ORDERED: BENZ-18 PO (12:12)
[2022-10-05] MEDS ORDERED: OMEP-173 PO (12:12)
[2022-10-05] MEDS ORDERED: SYMB16INH INH (12:12)
[2022-10-05] MEDS ORDERED: ALBUTEROL SULFATE 2.5MG/0.5ML INH NEB SOLN NEB SCH (16:00)
== END 2022-10-05 14:02 | disposition home or self-care (01) | DRG 202 ==
LOC: M ED 23:09 → M ED INP 10-04 04:06 → ENRESERV 10-04 12:56 → M MSPAV 10-04 13:35
PROVIDERS: ADMIT Family Medicine; ATTEND Internal Medicine Nephrology
DX: J21.0 Acute bronchiolitis due to respiratory syncytial virus (principal); J96.21 Acute and chronic respiratory failure with hypoxia; E87.20 Acidosis, unspecified; F41.9 Anxiety disorder, unspecified; I10 Essential (primary) hypertension; U09.9 Post COVID-19 condition, unspecified; J84.10 Pulmonary fibrosis, unspecified; Z20.822 Contact with and (suspected) exposure to COVID-19; R00.0 Tachycardia, unspecified; Z99.81 Dependence on supplemental oxygen; E66.9 Obesity, unspecified; G47.33 Obstructive sleep apnea (adult) (pediatric); Z79.899 Other long term (current) drug therapy

== ENCOUNTER → 2022-10-23 | Outpatient (CLI) | payer MEDICARE, MEDICAID ==
[~2022-10-23] MED LIST changes: +ALB2.5NEB NEB; +ALBU8.5H; +ALBU8.5H INH; +AMOX875T2; +BENZ-18 PO; +IBUP1TAB7 PO; +IBUP80TA; +ISOVUE-370 76% 100ML VIAL As Ordered ONE; +LEXA1TAB2 PO; +OMEP-173 PO; +PRED10TA2 PO; +SYMB16INH INH
== END ==
LOC: M RAD 07:52
PROVIDERS: ATTEND Nurse Practitioner Family
DX: J98.59 Other diseases of mediastinum, not elsewhere classified (principal)
CPT/HCPCS: 71260; Q9967

== ENCOUNTER → 2023-01-10 | Outpatient (REF) | payer MEDICARE, MEDICAID ==
[~2023-01-10] MED LIST changes: -ISOVUE-370 76% 100ML VIAL As Ordered ONE
[2023-01-10 18:13] LABS: HEMOGLOBIN A1c 5.6 % (4.0-6.0)
[2023-01-10 18:35] LABS: ALBUMIN 3.8 G/DL (3.2-5.2); ALKALINE PHOSPHATASE 69 U/L (46-116); ALT/SGPT 29 U/L (7.0-40); AST/SGOT 33 U/L (<34); BILIRUBIN,TOTAL 0.5 MG/DL (0.3-1.2); BLOOD UREA NITROGEN 30 MG/DL (9-23); CALCIUM LEVEL 8.8 MG/DL (8.5-10.1); CARBON DIOXIDE LEVEL 28 MMOL/L (20-31); CHLORIDE LEVEL 105 MMOL/L (98-107); CHOLESTEROL LEVEL 215 MG/DL (<200); CHOLESTEROL RISK RATIO 7.31 (<5); CREATININE FOR GFR 1.28 MG/DL (0.70-1.30); GLOMERULAR FILTRATION RATE > 60.0 (>60); GLUCOSE, FASTING 104 MG/DL (60-100); HDL CHOLESTEROL 29.4 MG/DL (>40); NON-HDL-C 185.6 MG/DL; POTASSIUM SERUM 4.8 MMOL/L (3.5-5.1); SODIUM LEVEL 139 MMOL/L (136-145); TOTAL PROTEIN 6.6 G/DL (5.7-8.2); TRIGLYCERIDES LEVEL 238 MG/DL (<150)
== END ==
LOC: M SFHCCLAY 11:29
PROVIDERS: ATTEND Nurse Practitioner Family
DX: R73.03 Prediabetes (principal); E78.5 Hyperlipidemia, unspecified

== ENCOUNTER → 2023-02-14 | Outpatient (CLI) | payer MEDICARE, MEDICAID | LOC: M CLY 14:37 | PROVIDERS: ATTEND Nurse Practitioner Family | DX: R06.02 Shortness of breath (principal) ==

== ENCOUNTER → 2023-02-14 | Outpatient (REF) | payer MEDICARE, MEDICAID | LOC: M SFHCCLAY 14:27 | PROVIDERS: ATTEND Nurse Practitioner Family | DX: J06.9 Acute upper respiratory infection, unspecified (principal) ==

== ENCOUNTER → 2023-07-09 | Outpatient (REF) | payer MEDICARE, MEDICAID | LOC: M SFHCCLAY 14:38 | PROVIDERS: ATTEND Physician Assistant | DX: R05.1 Acute cough (principal) ==

== ENCOUNTER → 2023-09-12 | Outpatient (REF) | payer MEDICARE, MEDICAID | LOC: M SFHCCLAY 08:29 | PROVIDERS: ATTEND Nurse Practitioner Family | DX: J06.9 Acute upper respiratory infection, unspecified (principal) ==

== ENCOUNTER → 2023-09-12 | Outpatient (CLI) | payer MEDICARE, MEDICAID | LOC: M CLY 08:35 | PROVIDERS: ATTEND Nurse Practitioner Family | DX: R91.8 Other nonspecific abnormal finding of lung field (principal); J06.9 Acute upper respiratory infection, unspecified ==

== ENCOUNTER → 2023-09-13 | Outpatient (REF) | payer MEDICARE, MEDICAID ==
[2023-09-13 12:28] LABS: ALBUMIN 3.8 G/DL (3.2-5.2); ALKALINE PHOSPHATASE 74 U/L (46-116); ALT/SGPT 32 U/L (7.0-40); AST/SGOT 19 U/L (<34); BILIRUBIN,TOTAL 0.4 MG/DL (0.3-1.2); BLOOD UREA NITROGEN 26 MG/DL (9-23); CARBON DIOXIDE LEVEL 29 MMOL/L (20-31); CHLORIDE LEVEL 107 MMOL/L (98-107); CHOLESTEROL LEVEL 218 MG/DL (<200); CHOLESTEROL RISK RATIO 6.72 (<5); CREATININE FOR GFR 1.06 MG/DL (0.70-1.30); GLOMERULAR FILTRATION RATE > 60.0 (>60); GLUCOSE, FASTING 117 MG/DL (60-100); HDL CHOLESTEROL 32.4 MG/DL (>40); LDL CHOLESTEROL 137.6 MG/DL (<100); NON-HDL-C 185.6 MG/DL; POTASSIUM SERUM 4.5 MMOL/L (3.5-5.1); SODIUM LEVEL 143 MMOL/L (136-145); TOTAL PROTEIN 7.1 G/DL (5.7-8.2); TRIGLYCERIDES LEVEL 240 MG/DL (<150)
[2023-09-13 12:32] LABS: HEMOGLOBIN A1c 5.6 % (4.0-6.0)
== END ==
LOC: M SFHCCLAY 09:00
PROVIDERS: ATTEND Nurse Practitioner Family
DX: Z00.00 Encounter for general adult medical examination without abnormal findings (principal); E78.5 Hyperlipidemia, unspecified; U09.9 Post COVID-19 condition, unspecified; F41.9 Anxiety disorder, unspecified; R73.03 Prediabetes

== ENCOUNTER → 2023-09-14 | Outpatient (CLI) | payer MEDICARE, MEDICAID ==
[~2023-09-14] MED LIST changes: +ISOVUE-370 76% 100ML VIAL ONE
== END ==
LOC: M PLAIMG 08:03
PROVIDERS: ATTEND Nurse Practitioner Family
DX: R93.89 Abnormal findings on diagnostic imaging of other specified body structures (principal); R91.8 Other nonspecific abnormal finding of lung field
CPT/HCPCS: 71270; Q9967

== ENCOUNTER 2023-09-25 10:47 | Emergency (ER) | payer MEDICARE, MEDICAID ==
[~2023-09-25] VITALS: Ht 162.6 cm; Wt 103.9 kg
[~2023-09-25 10:47] MED LIST changes: -ISOVUE-370 76% 100ML VIAL ONE
[2023-09-25 12:18] LABS: RSV AMPLIFICATION NEGATIVE (NEGATIVE)
[2023-09-25] MEDS ORDERED: ALBUTEROL SULFATE 2.5MG/0.5ML INH NEB SOLN NEB ONE (14:05)
[2023-09-25] MEDS ORDERED: AMOX875T2 PO (15:05)
[2023-09-25 15:17] VITALS: BP 136/87; TEMP 98; O2SAT 97
== END 2023-09-25 15:21 | disposition home or self-care (01) ==
LOC: M ED 10:47
DX: J98.01 Acute bronchospasm (principal); J06.9 Acute upper respiratory infection, unspecified; Z79.899 Other long term (current) drug therapy; Z79.51 Long term (current) use of inhaled steroids; Z79.1 Long term (current) use of non-steroidal anti-inflammatories (NSAID)

== ENCOUNTER → 2023-10-15 | Outpatient (CLI) | payer MEDICARE, MEDICAID ==
[~2023-10-15] MED LIST changes: +ISOVUE-370 76% 100ML VIAL As Ordered ONE
== END ==
LOC: M RAD 07:42
PROVIDERS: ATTEND Surgery
DX: J98.59 Other diseases of mediastinum, not elsewhere classified (principal)
CPT/HCPCS: 71260; Q9967

== ENCOUNTER → 2024-05-30 | Outpatient (REF) | payer MEDICARE, MEDICAID ==
[~2024-05-30] MED LIST changes: -ISOVUE-370 76% 100ML VIAL As Ordered ONE
[2024-05-30 17:54] LABS: BASO # 0.1 10^3/uL (0.0-0.2); BASO % 0.4 % (0.0-1.0); EOS # 0.2 10^3/uL (0.0-0.5); EOS % 1.2 % (0.0-3.0); HEMATOCRIT 44.6 % (42.0-52.0); HEMOGLOBIN 14.3 g/dl (13.5-17.5); LYMPH # 3.4 10^3/uL (1.5-5.0); LYMPH % 26.9 % (24.0-44.0); MEAN CORPUSCULAR HEMOGLOBIN 28.4 pg (27.0-33.0); MEAN CORPUSCULAR HGB CONC 32.1 g/dl (32.0-36.5); MEAN CORPUSCULAR VOLUME 88.7 fl (80.0-96.0); MONO % 7.8 % (2.0-8.0); PLATELET COUNT, AUTOMATED 377 10^3/uL (150-450); RED BLOOD COUNT 5.03 10^6/uL (4.30-6.10); WHITE BLOOD COUNT 12.6 10^3/uL (4.0-10.0)
[2024-05-30 18:06] LABS: HEMOGLOBIN A1c 5.5 % (4.0-6.0)
[2024-05-30 18:18] LABS: ALBUMIN 3.8 G/DL (3.2-5.2); ALKALINE PHOSPHATASE 80 U/L (46-116); ALT/SGPT 40 U/L (7.0-40); AST/SGOT 32 U/L (<34); BILIRUBIN,TOTAL 0.5 MG/DL (0.3-1.2); BLOOD UREA NITROGEN 28 MG/DL (9-23); CALCIUM LEVEL 10.1 MG/DL (8.5-10.1); CARBON DIOXIDE LEVEL 31 MMOL/L (20-31); CHLORIDE LEVEL 106 MMOL/L (98-107); CHOLESTEROL LEVEL 223 MG/DL (<200); CREATININE FOR GFR 1.29 MG/DL (0.70-1.30); GLOMERULAR FILTRATION RATE > 60.0 (>60); GLUCOSE, FASTING 99 MG/DL (60-100); HDL CHOLESTEROL 30.1 MG/DL (>40); LDL CHOLESTEROL 114.9 MG/DL (<100); NON-HDL-C 192.9 MG/DL; POTASSIUM SERUM 5.2 MMOL/L (3.5-5.1); SODIUM LEVEL 139 MMOL/L (136-145); TOTAL PROTEIN 7.3 G/DL (5.7-8.2); TRIGLYCERIDES LEVEL 390 MG/DL (<150)
[2024-05-30 18:21] LABS: THYROID STIMULATING HORMONE 2.076 uIU/ML (0.55-4.78)
== END ==
LOC: M SFHCCLAY 11:21
PROVIDERS: ATTEND Nurse Practitioner Family
DX: U09.9 Post COVID-19 condition, unspecified (principal); F41.9 Anxiety disorder, unspecified; E78.5 Hyperlipidemia, unspecified; I11.9 Hypertensive heart disease without heart failure; Z79.899 Other long term (current) drug therapy

== ENCOUNTER → 2024-06-12 | Outpatient (CLI) | payer MEDICARE, MEDICAID | LOC: M RAD 15:40 | PROVIDERS: ATTEND Nurse Practitioner Family | DX: M54.2 Cervicalgia (principal) ==

== ENCOUNTER → 2024-07-23 | Outpatient (REF) | payer MEDICARE, MEDICAID | LOC: M SFHCADAM 13:31 | PROVIDERS: ATTEND Family Medicine | DX: U09.9 Post COVID-19 condition, unspecified (principal) ==

== ENCOUNTER → 2024-07-23 | Outpatient (CLI) | payer MEDICARE, MEDICAID | LOC: M ADAMS 13:33 | PROVIDERS: ATTEND Family Medicine | DX: R06.2 Wheezing (principal) ==

== ENCOUNTER → 2024-07-30 | Outpatient (CLI) | payer MEDICARE, MEDICAID ==
[~2024-07-30] MED LIST changes: +ISOVUE-370 76% 100ML VIAL As Ordered ONE
== END ==
LOC: M RAD 15:30
PROVIDERS: ATTEND Family Medicine
DX: R05.1 Acute cough (principal); S22.41XS Multiple fractures of ribs, right side, sequela
CPT/HCPCS: 71260; Q9967

== ENCOUNTER → 2024-08-12 | Outpatient (CLI) | payer MEDICARE, MEDICAID ==
[~2024-08-12] MED LIST changes: -ISOVUE-370 76% 100ML VIAL As Ordered ONE
== END ==
LOC: M ADAMS 15:29
PROVIDERS: ATTEND Family Medicine
DX: R05.9 Cough, unspecified (principal)

== ENCOUNTER → 2024-09-08 | Outpatient (REF) | payer MEDICARE, MEDICAID | LOC: M SFHCADAM 17:05 | PROVIDERS: ATTEND Family Medicine | DX: R05.1 Acute cough (principal) ==

== ENCOUNTER → 2024-10-20 | Outpatient (CLI) | payer MEDICARE, MEDICAID ==
[~2024-10-20] MED LIST changes: +ISOVUE-370 76% 100ML VIAL ONE
== END ==
LOC: M PLAIMG 09:23
PROVIDERS: ATTEND Thoracic Surgery (Cardiothoracic Vascular Surgery)
DX: J98.59 Other diseases of mediastinum, not elsewhere classified (principal)
CPT/HCPCS: 71260; Q9967

== ENCOUNTER → 2024-11-19 | Outpatient (CLI) | payer MEDICARE, MEDICAID ==
[~2024-11-19] MED LIST changes: -ISOVUE-370 76% 100ML VIAL ONE
== END ==
LOC: M ADAMS 13:57
PROVIDERS: ATTEND Physician Assistant Medical
DX: M43.16 Spondylolisthesis, lumbar region (principal); M47.896 Other spondylosis, lumbar region; M54.50 Low back pain, unspecified

== ENCOUNTER → 2025-01-21 | Outpatient (REF) | payer OTHER ==
[2025-01-21 13:48] LABS: HEMATOCRIT 40.2 % (42.0-52.0); HEMOGLOBIN 12.8 g/dl (13.5-17.5); MEAN CORPUSCULAR HGB CONC 31.8 g/dl (32.0-36.5); PLATELET COUNT, AUTOMATED 441 10^3/uL (150-450); RED BLOOD COUNT 4.57 10^6/uL (4.30-6.10); WHITE BLOOD COUNT 14.6 10^3/uL (4.0-10.0)
[2025-01-21 13:56] LABS: ALBUMIN 3.2 G/DL (3.2-5.2); ALKALINE PHOSPHATASE 60 U/L (40-129); ALT/SGPT 122 U/L (7.0-40); AST/SGOT 37 U/L (<34); BILIRUBIN,TOTAL 0.4 MG/DL (0.3-1.2); BLOOD UREA NITROGEN 28 MG/DL (9-23); CALCIUM LEVEL 8.2 MG/DL (8.5-10.1); CARBON DIOXIDE LEVEL 30 MMOL/L (20-31); CHLORIDE LEVEL 104 MMOL/L (98-107); CHOLESTEROL LEVEL 192 MG/DL (<200); CHOLESTEROL RISK RATIO 8.03 (<5); CREATININE FOR GFR 1.04 MG/DL (0.70-1.30); GLOMERULAR FILTRATION RATE > 90.0 (>60); GLUCOSE, FASTING 90 MG/DL (60-100); HDL CHOLESTEROL 23.9 MG/DL (>40); LDL CHOLESTEROL 95.3 MG/DL (<100); NON-HDL-C 168.1 MG/DL; SODIUM LEVEL 143 MMOL/L (136-145); TOTAL PROTEIN 6.4 G/DL (5.7-8.2); TRIGLYCERIDES LEVEL 364 MG/DL (<150)
[2025-01-21 13:57] LABS: THYROID STIMULATING HORMONE 1.998 uIU/ML (0.55-4.78)
[2025-01-21 13:58] LABS: FOLATE 15.3 NG/ML (>5.4); VITAMIN B12 LEVEL 465 PG/ML (211-911)
[2025-01-21 13:59] LABS: FREE T4 1.67 NG/DL (0.89-1.76)
[2025-01-21 14:29] LABS: ATYPICAL LYMPH 3 % (0-5); LYMPHOCYTES 29 % (16-44); METAMYELOCYTES 1 % (0-0); MONOCYTES 3 % (0-5); NEUTROPHILS 64 % (28-66)
[2025-01-21 14:30] LABS: PLATELET ESTIMATE NORMAL (NORMAL)
== END ==
LOC: M SFHCADAM 09:35
PROVIDERS: ATTEND Physician Assistant
DX: J06.9 Acute upper respiratory infection, unspecified (principal); E66.01 Morbid (severe) obesity due to excess calories; Z68.41 Body mass index [BMI] 40.0-44.9, adult; E66.813 Obesity, class 3; G47.33 Obstructive sleep apnea (adult) (pediatric); K42.9 Umbilical hernia without obstruction or gangrene; Z13.1 Encounter for screening for diabetes mellitus; E78.5 Hyperlipidemia, unspecified; F41.9 Anxiety disorder, unspecified; J20.9 Acute bronchitis, unspecified; G89.4 Chronic pain syndrome; J47.9 Bronchiectasis, uncomplicated

== ENCOUNTER → 2025-03-16 | Outpatient (CLI) | payer MEDICARE, MEDICAID ==
[~2025-03-16] MED LIST changes: +OXYC1TAB23 PO
== END ==
LOC: M SLEEP 20:00
PROVIDERS: ATTEND Internal Medicine Pulmonary Disease
DX: G47.33 Obstructive sleep apnea (adult) (pediatric) (principal)

== ENCOUNTER → 2025-03-17 | Outpatient (CLI) | payer OTHER | LOC: M RAD 10:00 | PROVIDERS: ATTEND Physician Assistant | DX: J47.9 Bronchiectasis, uncomplicated (principal) ==

== ENCOUNTER 2025-03-20 10:06 | Day surgery (SDC) | payer MEDICARE, MEDICAID ==
[~2025-03-20] VITALS: Ht 162.6 cm; Wt 99.7 kg
[~2025-03-20 10:06] MED LIST changes: +LIDOCAINE 2% 100 MG/5 ML SDV (FOR ANES.) As Ordered ONE; +MIDAZOLAM INJ 2 MG/2 ML VIAL As Ordered ONE; +ONDANSETRON 4MG 2ML VIAL As Ordered ONE; -OXYC1TAB23 PO; +ROCURONIUM BROMIDE 50MG/5ML VIAL As Ordered ONE; +SUGAMMADEX SODIUM 500 MG/5 ML VIAL As Ordered ONE; +dexAMETHasone 4 MG/ML 1 ML VIAL As Ordered ONE
[2025-03-20] MEDS: LR 1,000 ML IV SCH (11:04)
[2025-03-20] MEDS: CelecoXIB 400 MG CAP PO ONE (11:04)
[2025-03-20] MEDS: IPRATROPIUM 0.5 MG/ALBUTEROL 2.5 MG INH SOL UD 3 ML NEB ONE ×2 (11:04→14:40)
[2025-03-20] MEDS: MIDAZOLAM INJ 2 MG/2 ML VIAL IV ONE (11:04)
[2025-03-20] MEDS ORDERED: dexmedeTOMIDine (4 MCG/ML) 200 MCG/50 ML BTL As Ordered ONE (11:24)
[2025-03-20] MEDS ORDERED: OXYC1TAB23 PO (11:31)
[2025-03-20] MEDS: ceFAZolin SOD 2 GM IV ONCE IV ONE (12:20)
[2025-03-20] MEDS ORDERED: ALBUTEROL 6.7 GM INHALER **FOR ANES. CART/OMNICELL ONLY As Ordered ONE (12:21)
[2025-03-20] MEDS ORDERED: PHENYLephrine 500MCG 5ML (100MCG/ML) SYRINGE As Ordered ONE (12:23)
[2025-03-20] MEDS: POVIDONE-IODINE 5% OPHTH PREP SOL 30ML As Ordered ONE (12:25)
[2025-03-20] MEDS: LIDOCAINE W/EPINEPHrine 1% 20 ML VIAL As Ordered ONE (12:28)
[2025-03-20] MEDS: TRIAMCINOLONE ACETONIDE SUSP 40MG/ML 1ML VIAL As Ordered ONE (12:28)
[2025-03-20] MEDS ORDERED: KETOROLAC 30 MG/ML 1 ML VIAL As Ordered ONE (13:18)
[2025-03-20] MEDS: LIDOCAINE 1% SDV 30 ML VIAL As Ordered ONE (13:35)
[2025-03-20] MEDS ORDERED: MORPHINE 2 MG/ML 1 ML VIAL IV PRN (13:45)
[2025-03-20] MEDS ORDERED: HYDROMORPHONE HCL 0.5 MG/0.5 ML SYRINGE IV PRN (13:45)
[2025-03-20] MEDS ORDERED: ACETAMINOPHEN 1000MG/100ML IV BAG As Ordered ONE (15:24)
[2025-03-20 15:50] VITALS: BP 146/86; TEMP 97.3; O2SAT 95
== END 2025-03-20 16:20 | disposition home or self-care (01) ==
LOC: M SDC 10:06
PROVIDERS: ATTEND Surgery
DX: K42.9 Umbilical hernia without obstruction or gangrene (principal); L91.0 Hypertrophic scar; R06.2 Wheezing; I10 Essential (primary) hypertension; R06.02 Shortness of breath; E78.5 Hyperlipidemia, unspecified; F41.9 Anxiety disorder, unspecified; F32.A Depression, unspecified; Z86.16 Personal history of COVID-19
CPT/HCPCS: 11426; 12042; 49592; 88302; J0131; J0665; J0690; J1100; J2250; J2371; J2405; J3010; J3301

== ENCOUNTER → 2025-06-15 | Outpatient (CLI) | payer MEDICARE, MEDICAID, OTHER ==
[~2025-06-15] MED LIST changes: -LIDOCAINE 2% 100 MG/5 ML SDV (FOR ANES.) As Ordered ONE; -MIDAZOLAM INJ 2 MG/2 ML VIAL As Ordered ONE; -ONDANSETRON 4MG 2ML VIAL As Ordered ONE; +OXYC1TAB23 PO; -ROCURONIUM BROMIDE 50MG/5ML VIAL As Ordered ONE; -SUGAMMADEX SODIUM 500 MG/5 ML VIAL As Ordered ONE; -dexAMETHasone 4 MG/ML 1 ML VIAL As Ordered ONE
== END ==
LOC: M ADAMS 15:43
DX: J47.9 Bronchiectasis, uncomplicated (principal)

== ENCOUNTER → 2025-07-31 | Outpatient (REF) | payer OTHER ==
[2025-07-31 15:19] LABS: CHOLESTEROL LEVEL 216.0 MG/DL (<200); CHOLESTEROL RISK RATIO 6.1 (<5); IRON (FE) 44.0 UG/DL (65-175); LDL CHOLESTEROL 138.8 MG/DL (<100); NON-HDL-C 180.6 MG/DL; PERCENT SATURATION 13.0 % (19.7-50.0); TRIGLYCERIDES LEVEL 209.0 MG/DL (<150)
[2025-07-31 15:20] LABS: FREE T4 1.17 NG/DL (0.89-1.76)
[2025-07-31 15:21] LABS: VITAMIN B12 LEVEL 460.0 PG/ML (211-911)
[2025-07-31 15:36] LABS: BASO # 0.0 10^3/uL (0.0-0.2); BASO % 0.3 % (0.0-1.0); EOS # 0.1 10^3/uL (0.0-0.5); EOS % 1.3 % (0.0-3.0); LYMPH # 2.6 10^3/uL (1.5-5.0); LYMPH % 28.1 % (24.0-44.0); MONO # 0.7 10^3/uL (0.0-0.8); MONO % 7.3 % (2.0-8.0); NEUTROPHILS # 5.8 10^3/uL (1.5-8.5); NEUTROPHILS % 62.7 % (36.0-66.0); PLATELET COUNT, AUTOMATED 322 10^3/uL (150-450)
[2025-07-31 15:44] LABS: ESTIMATED AVERAGE GLUCOSE 123.0 MG/DL (60-110)
== END ==
LOC: M SFHCADAM 07:51
PROVIDERS: ATTEND Physician Assistant
DX: G62.9 Polyneuropathy, unspecified (principal); E66.812 Obesity, class 2; K21.9 Gastro-esophageal reflux disease without esophagitis; G89.4 Chronic pain syndrome; U09.9 Post COVID-19 condition, unspecified; J47.9 Bronchiectasis, uncomplicated; D50.9 Iron deficiency anemia, unspecified; J45.40 Moderate persistent asthma, uncomplicated; Z68.39 Body mass index [BMI] 39.0-39.9, adult; E66.01 Morbid (severe) obesity due to excess calories

== ENCOUNTER → 2025-08-17 | Outpatient (CLI) | payer MEDICARE, MEDICAID | LOC: M SLEEP 20:00 | PROVIDERS: ATTEND Internal Medicine Pulmonary Disease | DX: G47.33 Obstructive sleep apnea (adult) (pediatric) (principal) ==